=== PATIENT | male | born 1935 | race Caucasian/White ===

== ENCOUNTER 2019-10-14 16:06 | Inpatient (IN) ==
[2019-10-14 18:32] LABS: Basophils % 0.2 % (0.0-0.8); Eosinophils # 0.1 10*3/uL (0.0-0.87); Eosinophils % 0.6 % (0.00-10.9); Hematocrit 32.5 VOL% (42.0-52.0); Hemoglobin 10.8 GM/DL (14.0-18.0); Immature Granulocytes % 0.5 %; Immature Granulocytes Absolute 0.07 #; Lymphocytes # 0.8 10*3/uL (1.4-4.0); Lymphocytes % 6.1 % (21.2-54.2); Mean Corpuscular HGB Conc 33.2 GM/DL (32-36); Mean Corpuscular Volume 93.4 FL (87-102); Mean Platelet Volume 10.8 FL (9.6-12.0); Neutrophils % 90.6 % (38.7-73.9); Platelet Count 190 T/CUMM (130-400); Red Blood Count 3.48 MC/CUMM (3.8-5.5); Red Cell Distribution Width 17.2 % (9.3-17.3); White Blood Count 13.2 T/CUMM (4-12)
[2019-10-14 19:09] LABS: Eosinophils 1 % (0-10); Lymphocytes 4 % (20-55); Segmented Neutrophils 92 % (50-85); Total Cells Counted 100
[2019-10-14 19:10] LABS: Platelet Estimate Adequate
[2019-10-14] MEDS ORDERED: ACETAMINOPHEN 325 MG TABLET PO PRN (19:20)
[2019-10-14] MEDS ORDERED: ONDANSETRON 4 MG/2 ML VIAL IV PRN (19:26)
[2019-10-14] MEDS ORDERED: DEXTROSE 50% 25 GM/50 ML VIAL IV PRN ×2 (19:26)
[2019-10-14] MEDS ORDERED: GLUCAGON 1 MG VIAL IM PRN ×2 (19:26)
[2019-10-14] MEDS: OXYBUTYNIN 5 MG TABLET PO SCH (23:29)
[2019-10-14] MEDS: INSULIN LISPRO 100 UNIT/ML SUBCUT SCH (23:29)
[2019-10-14] MEDS: HYDROXYCHLOROQUINE 200 MG TABLET PO SCH (23:30)
[2019-10-15 04:40] LABS: Basophils % 0.1 % (0.0-0.8); Eosinophils % 0.2 % (0.00-10.9); Immature Granulocytes % 0.6 %; Immature Granulocytes Absolute 0.05 #; Lymphocytes # 0.9 10*3/uL (1.4-4.0); Lymphocytes % 10.3 % (21.2-54.2); Mean Corpuscular HGB Conc 33.3 GM/DL (32-36); Mean Corpuscular Volume 95.1 FL (87-102); Monocytes % 3.7 % (1.7-12.7); Neutrophils % 85.1 % (38.7-73.9); Platelet Count 151 T/CUMM (130-400); Red Blood Count 2.84 MC/CUMM (3.8-5.5); Red Cell Distribution Width 17.1 % (9.3-17.3); White Blood Count 8.4 T/CUMM (4-12)
[2019-10-15 05:02] LABS: Calcium 8.1 MG/DL (8.5-10.1); Osmolality,Calculated 311.7 MOS/KG (273-304)
[2019-10-15 05:04] LABS: Lymphocytes 6 % (20-55); Segmented Neutrophils 93 % (50-85); Total Cells Counted 100
[2019-10-15 05:05] LABS: Hypochromasia 1+; Platelet Estimate Adequate
[2019-10-15] MEDS: PANTOPRAZOLE 40 MG TABLET PO SCH (08:34)
[2019-10-15] MEDS: OXYBUTYNIN 5 MG TABLET PO SCH ×2 (08:34→20:49)
[2019-10-15] MEDS: HYDROXYCHLOROQUINE 200 MG TABLET PO SCH ×2 (08:35→20:49)
[2019-10-15] MEDS: LORATADINE 10 MG TABLET PO SCH (08:35)
[2019-10-15] MEDS: POTASSIUM CHLORIDE 10 MEQ TABLET PO SCH (08:35)
[2019-10-15] MEDS: FOLIC ACID 1 MG TABLET PO SCH (08:35)
[2019-10-15] MEDS: AZITHROMYCIN 250 MG TABLET PO SCH (08:35)
[2019-10-15] MEDS: allopurinoL 300 MG TABLET PO SCH (08:35)
[2019-10-15] MEDS: FERROUS SULFATE 325 MG TABLET PO SCH ×2 (08:35→20:49)
[2019-10-15] MEDS: CITALOPRAM 20 MG TABLET PO SCH (08:35)
[2019-10-15] MEDS: ENOXAPARIN 40 MG/0.4 ML SYRINGE SUBCUT SCH (08:35)
[2019-10-15] MEDS ORDERED: POTASSIUM CHLORIDE 20 MEQ TABLET PO PRN (09:03)
[2019-10-15] MEDS ORDERED: POTASSIUM CHLORIDE RIDER 10 MEQ in PREMIX 1 EACH IV PRN (09:03)
[2019-10-15] MEDS: INSULIN LISPRO 100 UNIT/ML SUBCUT SCH ×4 (09:44→20:49)
[2019-10-15] MEDS ORDERED: LORazepam 2 MG/1 ML VIAL IV PRN (10:19)
[2019-10-15] MEDS ORDERED: SODIUM CHLORIDE 0.9% 1,000 ML IV ONE (10:20)
[2019-10-15] MEDS: ZINC SULFATE 220 MG CAPSULE PO SCH (16:53)
[2019-10-15] MEDS: LACTATED RINGERS 1,000 ML IV SCH (16:53)
[2019-10-16] MEDS: LACTATED RINGERS 1,000 ML IV SCH ×2 (02:52→14:26)
[2019-10-16 05:22] LABS: Basophils % 0.1 % (0.0-0.8); Eosinophils # 0.1 10*3/uL (0.0-0.87); Eosinophils % 0.7 % (0.00-10.9); Hematocrit 27.8 VOL% (42.0-52.0); Hemoglobin 9.6 GM/DL (14.0-18.0); Immature Granulocytes % 0.7 %; Immature Granulocytes Absolute 0.06 #; Lymphocytes # 0.7 10*3/uL (1.4-4.0); Lymphocytes % 8.4 % (21.2-54.2); Mean Corpuscular HGB Conc 34.5 GM/DL (32-36); Mean Corpuscular Volume 94.6 FL (87-102); Monocytes % 2.4 % (1.7-12.7); Neutrophils % 87.7 % (38.7-73.9); Platelet Count 137 T/CUMM (130-400); Red Blood Count 2.94 MC/CUMM (3.8-5.5); Red Cell Distribution Width 16.9 % (9.3-17.3); White Blood Count 8.7 T/CUMM (4-12)
[2019-10-16 05:36] LABS: Calcium 8.1 MG/DL (8.5-10.1); Osmolality,Calculated 316.4 MOS/KG (273-304)
[2019-10-16 05:46] LABS: Microcytosis 1+; Ovalocytes Slight
[2019-10-16 05:47] LABS: Platelet Estimate Adequate
[2019-10-16] MEDS: OXYBUTYNIN 5 MG TABLET PO SCH ×2 (08:33→20:21)
[2019-10-16] MEDS: FERROUS SULFATE 325 MG TABLET PO SCH ×2 (08:33→20:22)
[2019-10-16] MEDS: FOLIC ACID 1 MG TABLET PO SCH (08:33)
[2019-10-16] MEDS: ENOXAPARIN 40 MG/0.4 ML SYRINGE SUBCUT SCH (08:33)
[2019-10-16] MEDS: AZITHROMYCIN 250 MG TABLET PO SCH (08:33)
[2019-10-16] MEDS: CITALOPRAM 20 MG TABLET PO SCH (08:33)
[2019-10-16] MEDS: allopurinoL 300 MG TABLET PO SCH (08:34)
[2019-10-16] MEDS: PANTOPRAZOLE 40 MG TABLET PO SCH (08:34)
[2019-10-16] MEDS: POTASSIUM CHLORIDE 10 MEQ TABLET PO SCH (08:34)
[2019-10-16] MEDS: LORATADINE 10 MG TABLET PO SCH (08:35)
[2019-10-16] MEDS: INSULIN LISPRO 100 UNIT/ML SUBCUT SCH ×4 (08:42→20:58)
[2019-10-16] MEDS: HYDROXYCHLOROQUINE 200 MG TABLET PO SCH ×2 (10:00→20:21)
[2019-10-16] MEDS: MORPHINE 4 MG/1 ML VIAL IV PRN (23:56)
[2019-10-17] MEDS: LACTATED RINGERS 1,000 ML IV SCH ×2 (01:18→17:22)
[2019-10-17 06:09] LABS: Basophils % 0.1 % (0.0-0.8); Eosinophils # 0.2 10*3/uL (0.0-0.87); Eosinophils % 1.7 % (0.00-10.9); Hematocrit 24.9 VOL% (42.0-52.0); Hemoglobin 8.5 GM/DL (14.0-18.0); Immature Granulocytes % 0.9 %; Immature Granulocytes Absolute 0.08 #; Lymphocytes # 0.6 10*3/uL (1.4-4.0); Lymphocytes % 7.3 % (21.2-54.2); Mean Corpuscular HGB Conc 34.1 GM/DL (32-36); Mean Corpuscular Volume 93.3 FL (87-102); Platelet Count 123 T/CUMM (130-400); Red Blood Count 2.67 MC/CUMM (3.8-5.5); Red Cell Distribution Width 17.2 % (9.3-17.3); White Blood Count 8.8 T/CUMM (4-12)
[2019-10-17 06:30] LABS: Calcium 8.4 MG/DL (8.5-10.1); Osmolality,Calculated 315.1 MOS/KG (273-304)
[2019-10-17 06:48] LABS: Platelet Estimate Decreased; Polychromasia Few
[2019-10-17] MEDS ORDERED: POTASSIUM CHLORIDE INJ 50 MEQ in SODIUM CHLORIDE 0.9% 500 ML IV ONE (09:00)
[2019-10-17] MEDS: INSULIN LISPRO 100 UNIT/ML SUBCUT SCH ×4 (10:09→22:00)
[2019-10-17] MEDS: ENOXAPARIN 40 MG/0.4 ML SYRINGE SUBCUT SCH (10:10)
[2019-10-17] MEDS: CITALOPRAM 20 MG TABLET PO SCH (10:55)
[2019-10-17] MEDS: FERROUS SULFATE 325 MG TABLET PO SCH ×2 (10:55→22:00)
[2019-10-17] MEDS: LORATADINE 10 MG TABLET PO SCH (10:55)
[2019-10-17] MEDS: OXYBUTYNIN 5 MG TABLET PO SCH ×2 (10:55→22:00)
[2019-10-17] MEDS: HYDROXYCHLOROQUINE 200 MG TABLET PO SCH ×2 (10:56→22:00)
[2019-10-17] MEDS: FOLIC ACID 1 MG TABLET PO SCH (10:56)
[2019-10-17] MEDS: POTASSIUM CHLORIDE 10 MEQ TABLET PO SCH (10:56)
[2019-10-17] MEDS: PANTOPRAZOLE 40 MG TABLET PO SCH (10:57)
[2019-10-17] MEDS: AZITHROMYCIN 250 MG TABLET PO SCH (10:57)
[2019-10-17] MEDS: allopurinoL 300 MG TABLET PO SCH (10:57)
[2019-10-17] MEDS: ZINC SULFATE 220 MG CAPSULE PO SCH (10:57)
[2019-10-17] MEDS: MORPHINE 4 MG/1 ML VIAL IV PRN (17:54)
[2019-10-18] MEDS: MORPHINE 4 MG/1 ML VIAL IV PRN ×4 (00:45→20:58)
[2019-10-18] MEDS ORDERED: POTASSIUM CHLORIDE INJ 40 MEQ in SODIUM CHLORIDE 0.9% 500 ML IV ONE (09:30)
[2019-10-18] MEDS: LACTATED RINGERS 1,000 ML IV SCH ×2 (10:07→22:01)
[2019-10-18] MEDS: INSULIN LISPRO 100 UNIT/ML SUBCUT SCH ×2 (10:07→13:56)
[2019-10-18] MEDS: LORATADINE 10 MG TABLET PO SCH (10:08)
[2019-10-18] MEDS: CITALOPRAM 20 MG TABLET PO SCH (10:08)
[2019-10-18] MEDS: OXYBUTYNIN 5 MG TABLET PO SCH (10:08)
[2019-10-18] MEDS: FERROUS SULFATE 325 MG TABLET PO SCH (10:08)
[2019-10-18] MEDS: POTASSIUM CHLORIDE 10 MEQ TABLET PO SCH (10:09)
[2019-10-18] MEDS: PANTOPRAZOLE 40 MG TABLET PO SCH (10:09)
[2019-10-18] MEDS: FOLIC ACID 1 MG TABLET PO SCH (10:09)
[2019-10-18] MEDS: allopurinoL 300 MG TABLET PO SCH (10:09)
[2019-10-18] MEDS: AZITHROMYCIN 250 MG TABLET PO SCH (10:09)
[2019-10-18] MEDS: ENOXAPARIN 40 MG/0.4 ML SYRINGE SUBCUT SCH (13:57)
[2019-10-18] MEDS: LORazepam 2 MG/1 ML VIAL IV PRN (15:56)
[2019-10-19] MEDS: LORazepam 2 MG/1 ML VIAL IV PRN ×2 (00:20→05:54)
[2019-10-19] MEDS: LACTATED RINGERS 1,000 ML IV SCH (17:48)
[2019-10-19] MEDS: MORPHINE 4 MG/1 ML VIAL IV PRN (21:25)
[2019-10-20] MEDS: LACTATED RINGERS 1,000 ML IV SCH ×2 (07:11→14:37)
[2019-10-20] MEDS ORDERED: ACETAMINOPHEN 650 MG SUPP RECTAL PRN (21:54)
[2019-10-20 22:06] VITALS: BP 73/29
== END 2019-10-20 23:24 | disposition expired | DRG 871 ==
LOC: EDUNIT# → EDBD → N.ED 16:06 → N.EDINP 19:26 → SUATTDRO 19:26 → SUPCPDRO 19:26 → N.EDINP 20:18 → N.2W 22:02
PROVIDERS: ADMIT Family Medicine; ATTEND Internal Medicine